=== PATIENT | female | born 1980 ===

== ENCOUNTER 2017-06-30 16:50 | Emergency (ER) | payer MEDICAID ==
[2017-06-30 16:54] VITALS: O2SAT 100
[2017-06-30 21:11] VITALS: TEMP 98
--- NOTE | 2017-06-30 21:33 | ED PDOC ---
HPI: Allergic Reaction Time Seen by Provider: 06/30/17 20:05 Chief Complaint (Nursing): Allergic Reaction Chief Complaint (Provider): Allergic reaction History Per: Patient History/Exam Limitations: no limitations Onset/Duration Of Symptoms: Hrs (today at 15:30) Current Symptoms Are (Timing): Still Present Possible Cause: Food (seafood salad) Associated Symptoms: Skin Rash, Swelling (facial, lips and tongue. Resolved), Trouble Swallowing (resolved), Itching Home/EMS Treatment: Epi-pen Additional Complaint(s): Lakshmi Hutchinson is a 36 year old female, with no significant past medical history, who was brought to the emergency department via EMS for an allergic reaction around 15:30 today. Patient reports visiting here from [place] , she was eating a seafood salad, after 3rd serving she developed acute facial swelling, diffused pruritic rash and swelling to lips, tongue and throat. Patient was unable to swallow Benadryl that gave her. She went to local urgent care clinic where she was given Epinephrine and 911 was called and transported here. On arrival symptoms improved remarkably, no swelling, slight mild itchiness to right arm but rash is largely resolved. She has no previous history of seafood allergy. She does reports she is on 2nd day of amoxicillin prescribed for an ear infection. She denies any previous history of penicillin allergy. No further medical complaints. PMD: None provided. Past Medical History Reviewed: Historical Data, Nursing Documentation, Vital Signs Vital Signs: Last Vital Signs Temp 98 F 06/30/17 21:11 Pulse 91 H 06/30/17 21:11 Resp 20 06/30/17 21:11 BP 130/81 06/30/17 21:11 Pulse Ox 100 06/30/17 21:11 - Medical History PMH: No Chronic Diseases - Surgical History Surgical History: Appendectomy - Family History Family History: States: Unknown Family Hx - Social History Current smoker - smoking cessation education provided: No Alcohol: Occasional Drugs: Denies - Immunization History Hx Tetanus Toxoid Vaccination: No Hx Influenza Vaccination: No Hx Pneumococcal Vaccination: No - Home Medications Home Medications: Ambulatory Orders Medication Instructions Recorded Azithromycin [Zithromax] 250 mg PO QAM #1 pkg 06/30/17 Cetirizine HCl [Zyrtec] 10 mg PO QAM #10 capsule 06/30/17 Epinephrine HCl [Epipen 0.3 mg MR PRN PRN #1 ml 06/30/17 Auto-Injector] Famotidine [Pepcid] 20 mg PO Q12 #14 tab 06/30/17 Methylprednisolone [Medrol Dosepak] 4 mg PO ASDIR #1 pkg 06/30/17 - Allergies Allergies/Adverse Reactions: Allergies Allergy/AdvReac Type Severity Reaction Status Date / Time No Known Allergies Allergy Verified 06/30/17 16:52 Review of Systems ROS Statement: Except As Marked, All Systems Reviewed And Found Negative ENT: Positive for: Mouth Swelling Respiratory: Positive for: Shortness of Breath Skin: Positive for: Rash (itchy) Physical Exam - Reviewed Nursing Documentation Reviewed: Yes Vital Signs Reviewed: Yes - Physical Exam Appears: Positive for: Well, Non-toxic, No Acute Distress Head Exam: Positive for: ATRAUMATIC, NORMAL INSPECTION, NORMOCEPHALIC Skin: Positive for: Normal Color, Warm, Dry Eye Exam: Positive for: Normal appearance, EOMI, PERRL ENT: Positive for: Normal ENT Inspection Neck: Positive for: Painless ROM, Supple Cardiovascular/Chest: Positive for: Regular Rate, Rhythm. Negative for: Murmur Respiratory: Positive for: Normal Breath Sounds. Negative for: Respiratory Distress Gastrointestinal/Abdominal: Positive for: Normal Exam, Soft. Negative for: Tenderness Back: Positive for: Normal Inspection. Negative for: L CVA Tenderness, R CVA Tenderness, Vertebral Tenderness Extremity: Positive for: Normal ROM (upper and lower extremities). Negative for : Tenderness, Deformity, Swelling Neurologic/Psych: Positive for: Alert, Oriented. Negative for: Motor/Sensory Deficits - ECG O2 Sat by Pulse Oximetry: 100 (RA) Pulse Ox Interpretation: Normal Disposition - Clinical Impression Clinical Impression: Acute allergic reaction - Disposition Disposition: Routine/Home Disposition Time: 21:20 Condition: STABLE Prescriptions: Azithromycin [Zithromax] 250 mg PO QAM #1 pkg Cetirizine HCl [Zyrtec] 10 mg PO QAM #10 capsule Epinephrine HCl [Epipen Auto-Injector] 0.3 mg MR PRN PRN #1 ml PRN Reason: Anaphylaxis Famotidine [Pepcid] 20 mg PO Q12 #14 tab Methylprednisolone [Medrol Dosepak] 4 mg PO ASDIR #1 pkg Instructions: Allergy Skin Testing, Drug Allergy Forms: Bench ([place]) Medical Decision Making Medical Decision Making: Initial Impression: 36 y/o with acute anaphylactic reaction, resolved on arrival to ED. Initial Plan: --EKG --CMP --CBC w/ differential --Pepcid 20 mg IV --SOLU-medrol 125 mg IVP --Reevaluation 21:10 -She continues to feel well. In provider's opinion unclear of seafood vs penicillin allergy. 21:20 -Patient changed to Zithromax and discharged with epipen, medrol, pepcid, zyrtec. Patient's condition improved Scribe Attestation: Documented by Humble Nieves, acting as a scribe for Tremaine Dong MD Provider Scribe Attestation: All medical record entries made by the Scribe were at my direction and personally dictated by me. I have reviewed the chart and agree that the record accurately reflects my personal performance of the history, physical exam, medical decision making, and the department course for this patient. I have also personally directed, reviewed, and agree with the discharge instructions and disposition.
[2017-06-30 21:59] VITALS: BP 112/68; PULSE 78; RESP 86
--- NOTE | 2017-07-03 13:42 | CARD ---
APPROVED REPORT EKG Measurement Heart [id number] OR [id number] <Conclusion> Normal sinus rhythm Normal ECG
== END 2017-06-30 22:01 | disposition home or self-care (01) ==
LOC: H.ER 16:50
DX: T78.40XA Allergy, unspecified, initial encounter (principal)
CPT/HCPCS: 93005; 96374; 99284; J2930